=== PATIENT | male | born 1965 | race Caucasian/White ===

== ENCOUNTER → 2019-09-08 12:09 | Outpatient (CLI) | payer SELFPAY ==
[~2019-09-08 12:09] MED LIST: BAYER CHEWABLE81 MG PO; EDARBI40 MG PO; HCTZ25 MG PO; LIPITOR40 MG PO; NORVASC5 MG PO; PLAVIX75 MG PO
--- NOTE | 2019-09-15 17:02 | ST ---
PATIENT:HENRY ALLEN MEDICAL RECORD: [id number] SEX: M LOCATION:[facility] ORDER #: ADMISSION DATE: 09/08/19 AGE OF PATIENT: 53 REFERRING PHYSICIAN: INTERPRETING PHYSICIAN: CLIFFORD PETERSEN MD DATE OF SERVICE: 09/08/2019 PROCEDURE: Nuclear stress test. INDICATION: Angina, abnormal ECG, hypertension, and shortness of breath. He was exercised on standard Hilton protocol for 8 minutes achieving 85% maximum target heart rate response with 32 mCi of sestamibi injected at peak stress, 10 mCi used previously for rest images. FINDINGS: Gated SPECT reveals preserved ejection fraction at 63% with good wall motion and thickening and brightening throughout all segments. SPECT imaging: Cardiolite was used as myocardial perfusion agent. There are reversible changes inferiorly and apically. This includes the basal, mid, apical, inferior segments as well as the apex itself. The degree of reversibility is moderate. The amount of myocardium involved is moderate. OVERALL IMPRESSION: This is an intermediate risk abnormal nuclear stress test. Reversible ischemia throughout the inferior and apical segments suggestive of hemodynamically significant coronary artery disease. TRANSINT:[id number] Voice Confirmation ID: [id number] DOCUMENT ID: [id number] CLIFFORD PETERSEN MD at 1702 CC: [id number] DICTATION DATE: 09/08/19 170 SCOURING TRAIN OPERATOR CHIEF: 09/08/19 2324 DEP CLI 09/08/19 [facility] [address] [place] [address]
[2019-09-29 11:24] VITALS: BMI 32.9
== END | disposition home or self-care (01) ==
LOC: D.HCCARDIO 08:30
PROVIDERS: ATTEND Internal Medicine Interventional Cardiology
DX: I20.9 Angina pectoris, unspecified (principal)

== ENCOUNTER → 2019-09-26 12:27 | Outpatient (CLI) | payer OTHER ==
[2019-09-29 11:24] VITALS: BMI 32.9
== END | disposition home or self-care (01) ==
LOC: D.HCCECHO 12:27
PROVIDERS: ATTEND Internal Medicine Interventional Cardiology
DX: R01.1 Cardiac murmur, unspecified (principal)

== ENCOUNTER 2019-09-29 11:03 | Outpatient (CLI) | payer OTHER ==
[~2019-09-29] VITALS: Ht 177.8 cm; Wt 104.1 kg
--- NOTE | ~2019-09-29 | HEMODYNAMI ---
PATIENT:HENRY ALLEN MEDICAL RECORD: [id number] : 63 LOCATION:D.CAT ADMISSION DATE: 09/29/19 Generatedon:09/29/201913:31 Patient name: HENRY ALLEN Patient #: [id number] SSN: [id number] : 1965 Date of study: 09/29/2019 Page: Of Hemodynamic Procedure Report Patient Data Patient Demographics Procedure consent was obtained First Name: HENRY Gender: Male Last Name: TIFFANY : 1965 Patient #: [id number] Age: 54 year(s) Race: SSN: [id number] Ethnicity: or Additional ID: [id number] Contact details [address]: [address] [place] [address] State: [place] City: [place] Zip code: [address] Admission Admission Data Admission Date: 09/29/2019 Admission Time: 11:03 Arrival Date: 09/29/2019 Arrival Time: 13:00 Admit Source: Other Insurance Payor: Private health insurance [facility] #: [id number] Height (in.): 70.08 BSA: 2.21 (m2) Height (cm.): 178 BMI: 32.82 (kg/m2) Weight (lbs.): 229.28 Weight (kg.): 104 Lab Results Lab Result Date: 09/29/2019 Lab Result Time: 0:00 Biochemistry Name Units Result Min Max BUN mg/dl 18 --(---*)-- 7 18 Creatinine mg/dl 1.2 --(---*)-- 0.6 1.3 eGFR ml/min 67.45449 *-(----)-- 90 120 NONAFRICAN CBC Name Units Result Min Max Hemoglobin g/dl 13.1 -*(----)-- 13.5 17.5 Procedure Procedure Types Cath Procedure Diagnostic Procedure [facility] w/Coronaries Sedation Charges Moderate Sedation up to 30 minutes PCI Procedure Coronary Stent Coronary Stent Initial Procedure Description Procedure Date Procedure Date: 09/29/2019 Procedure Start Time: 13:06 Procedure End Time: 13:24 Procedure Staff Name Function Alex Khalil RN Nurse Addison Mosley MD Performing Physician Maureen Sargent RT Monitor Sandy Rodriguez RT Scrub Procedure Data Cath Procedure Fluoroscopy Diagnostic fluoroscopy Total fluoroscopy Time: 4 time: 4 min min Diagnostic fluoroscopy Total fluoroscopy dose: dose: 1237 mGy 1237 mGy Contrast Material Contrast Material Type Amount (ml) Isovue 300 87 Entry Location Entry Primary Successful Side Size Upsize Upsize Entry Closure Laurent ccessful Closure Location (Fr) 1 (Fr) 2 (Fr) Remarks Device Remarks Radial Right 6 Fr Mechanical artery Short Compression Estimated blood loss: 5 ml Diagnostic catheters Device Type Used For End Catheter Placement DIAGNOSTIC Elizabeth 110cm 5 Multi-vessel Fr catheter ([id number]) Angiography Procedure Complications No complications Procedure Medications Medication Administration Route Dosage Oxygen etCO2 Nasal cannula 2 l/min Lidocaine 2% added to field 20 Heparin Flush Bag added to field 2 bags (1000units/500ml NS) 0.9% NaCl I.V. 100 ml/hr Radial Cocktail I.A. 1 syringe (Verapamil 2mg/Nitro 400mcg/Heparin 1500units) Versed I.V. 2 mg Fentanyl I.V. 100 mcg Versed I.V. 2 mg Fentanyl I.V. 100 mcg Versed I.V. 2 mg Heparin Bolus I.V. 4000 units Integrilin (Bolus I.V. 9.5 ml 2mg/ml) Plavix P.O. 600 mg Hemodynamics Rest BSA: 2.21 (m2) HGB: 13.1 (g/dl) O2 Consumption: Estimated: 265.56 (ml/min) O2 Co nsumption indexed: Estimated:120.16 (ml/min/m) Heart Rate: 74 (bpm) Pressure Samples Time Site Value (mmHg) Purpose Heart Use Rate(bpm) 13:10 LV 117/27,-6 Snapshot 110 Gradients Valve Time Site Site Mean SEP/DFP Peak To Heart Use 1 2 (mmHg) (sec/min) Peak Rate (mmHg) (bpm) Aortic 13:10 LV AO 88 Snapshots Pre Cath Intra NCS Post Cath Vital Signs Time Heart Resp SPO2 etCO2 NIBP (mmHg) Rhythm Pain Sedation Rate (ipm) (%) (mmHg) Status Level (bpm) 12:45:35 69 19 97 28.2 161/84(143) NSR 0 (11) 10(A) , No pain 12:49:46 77 15 98 34.1 148/102(118) NSR 0 (11) 10(A) , No pain 12:54:01 76 13 96 36.4 151/79(114) NSR 0 (11) 10(A) , No pain 12:58:09 69 14 94 0 135/85(102) NSR 0 (11) 10(A) , No pain 13:02:19 75 16 96 0 123/85(102) NSR 0 (11) 9(A) , No pain 13:07:12 83 13 97 35.6 145/81(124) NSR 0 (11) 9(A) , No pain 13:11:24 84 19 94 13.3 119/72(87) NSR 0 (11) 9(A) , No pain 13:16:19 84 15 93 21.5 119/77(92) NSR 0 (11) 9(A) , No pain 13:20:27 81 15 94 36.4 130/73(108) NSR 0 (11) 10(A) , No pain 13:24:32 83 13 97 35.6 145/90(116) NSR 0 (11) 10(A) , No pain Medications Time Medication Route Dose Verified Delivered Reason Not es Effectiveness by by 12:43:01 Oxygen etCO2 2 l/min Addison Johnson used for Nasal St Reg Khalil RN procedure cannula 12:43:08 Lidocaine 2% added 20ml Addison Jaime for local to vial [facility] anesthetic field MD PERKINS 12:43:14 Heparin Flush added 2 bags Addison Jaime used for Bag to [facility] procedure (1000units/500ml field MD PERKINS NS) 12:43:22 0.9% NaCl I.V. 100 Addison Johnson Per physician ml/hr St Reg Khalil RN, MD 12:43:34 Radial Cocktail I.A. 1 Addison Jaime for (Verapamil syringe [facility] vasodilation 2mg/Nitro MD PERKINS 400mcg/Heparin 1500units) 12:58:24 Versed I.V. 2 mg Addison Johnson for sedation St Reg Khalil RN, MD 12:58:29 Fentanyl I.V. 100 mcg Addison Johnson for sedation St Reg Khalil RN, MD 13:03:11 Versed I.V. 2 mg Addison Johnson for sedation St Reg Khalil RN, MD 13:04:14 Fentanyl I.V. 100 mcg Addison Johnson for sedation St Reg Khalil RN, MD 13:08:54 Versed I.V. 2 mg Addison Johnson for sedation St Reg Khalil RN, MD 13:16:27 Heparin Bolus I.V. 4000 Addison Johnson for mable ified units St Reg Khalil RN anticoagulation with dr MD soria 13:17:58 Integrilin I.V. 9.5 ml Addison iglesias was sarah (Bolus 2mg/ml) St Reg Khalil RN antiplatelet 0.5 ml MD therapy of vial 13:25:48 Plavix P.O. 600 [address] Johnson for St Reg Khalil RN antiplatelet therapy Procedure Log Time Note 12:23:57 Informed consent obtained and on chart 12:33:18 Admit Source: Other 12:33:24 Arrival Date: 09/29/2019 1:00:00 PM 12:33:46 Insurance Payor : Private health insurance 12:33:52 Patient Weight : 229.28 lbs 12:33:59 Patient Height : 70.08 inches 12:34:50 Lab Result : Hemoglobin 13.1 g/dl 12:34:50 Lab Result : eGFR NONAFRICAN 67.17390 ml/min 12:34:50 Lab Result : BUN 18 mg/dl 12:34:50 Lab Result : Creatinine 1.2 mg/dl 12:34:56 Procedure Status Elective Heart Cath (OP). 12:34:58 Alex Khalil RN sent for patient. Start room use. 12:34:59 Time tracking: Regular hours (M-F 7:00 - 5:00) 12:35:03 Plan of Care:Hemodynamics will remain stable., Cardiac rhythm will remain stable., Comfort level will be maintained., Respiratory function will remain adequate., Patient/ family verbilizes understanding of procedure., Procedure tolerated without complication., Recovers from procedure without complications.. 12:35:21 Diagnostic Cath Status : Elective 12:43:01 Oxygen 2 l/min etCO2 Nasal cannula was administered by Alex Khalil RN; used for procedure; Verbal order read back and verified. 12:43:08 Lidocaine 2% 20ml vial added to field was administered by Addison Mosley MD; for local anesthetic; Verbal order read back and verified. 12:43:14 Heparin Flush Bag (1000units/500ml NS) 2 bags added to field was administered by Addison Mosley MD; used for procedure; Verbal order read back and verified. 12:43:22 0.9% NaCl 100 ml/hr I.V. was administered by Alex Khalil RN; Per physician; Verbal order read back and verified. 12:43:34 Radial Cocktail (Verapamil 2mg/Nitro 400mcg/Heparin 1500units) 1 syringe I.A. was administered by Addison Mosley MD; for vasodilation; Verbal order read back and verified. 12:43:36 Vital chart was started 12:46:52 Patient received from Pre/Post Procedure Room to CCL 2 Alert and oriented. Tansferred to table in Supine position. 12:46:53 Warm blankets applied, and grabiel hugger turned on for patient comfort. 12:46:53 Correct patient and procedure confirmed by team. 12:46:54 Baseline sample Acquired. 12:46:54 ECG and BP/O2 sat monitors applied to patient. 12:46:58 Rhythm: sinus rhythm 12:47:00 Full Disclosure recording started 12:47:04 H&P Date Dictated: 09/29/2019 Within 30 days and on chart., H&P Addendum completed by physician on day of procedure. (MUST COMPLETE FOR ALL OUTPATIENTS). 12:47:06 Pre-procedure instructions explained to patient. 12:47:06 Pre-op teaching completed and patient verbalized understanding. 12:47:08 Family in patients room. 12:47:09 Patient NPO since Midnight. 12:47:11 Is the patient allergic to Iodine/contrast media? No. 12:47:12 Was the patient premedicated? Yes 12:47:13 Is patient on blood thinner?No 12:47:14 Patient diabetic? No. 12:47:17 Previous problem with sedation/anesthesia? No ? 12:47:18 Snore? Yes 12:47:19 Sleep apnea? No 12:47:20 Deviated septum? No 12:47:21 Opens mouth fully? Yes 12:47:21 Sticks out tongue? Yes 12:47:23 Airway obstruction? No ? 12:47:26 Dentures? No ? 12:47:29 Pre procedure: right dorsailis pedis pulse 2+ Normal; easily identifiable; not easily obliterated 12:47:31 Pre procedure: left dorsailis pedis pulse 2+ Normal; easily identifiable; not easily obliterated 12:47:33 Patient pain scale 0/10 ?. 12:47:38 IV patent on arrival in left forearm with 0.9% NaCl at [facility]. 12:47:41 Lab results completed and on chart. 12:47:56 Stress Test: yes; abnormal inferior 12:48:03 Risk of Mortality: <0.1 12:48:08 Risk of blood transfusion: 0.1 12:48:13 Risk of ASHISH: 0.7 12:48:16 Right Radial & Right Groin area was prepped with chlora-prep and draped in sterile fashion 12:48:17 Alarms reviewed by R. N. 12:48:17 Sharps counted by scrub and verified by R.N. 12:57:42 Physician arrived 12:57:42 --------ALL STOP TIME OUT------ 12:57:43 Final Timeout: patient, procedure, and site verified with staff and physician. All members of the team are in agreement. 12:57:46 Right Radial & Right Groin site verified by team. 12:57:54 Fire Safety Assessment: A--An alcohol-based skin anteseptic being used preoperatively., C--Open oxygen or nitrous oxide is being used., D--An ESU, laser, or fiber-optic light is being used. 12:57:58 Physical assessment completed. ASA score P 2 - A patient with mild systemic disease as per Alex Khalil RN. 12:58:04 2) 60-89 Mildly reduced kidney function, and other findings (as for stage 1) point to kidney disease. 12:58:12 Maximum allowable contrast dose (3.7 X eGFR X 0.75)185 ml. 12:58:17 Sedation plan: IV Moderate Sedation Medication:Versed, Fentanyl 12:58:21 Use device set Radial Dx or PCI 12:58:22 ACIST Syringe (04911) opened to sterile field. 12:58:22 Medline Cath Pack ([id number]) opened to sterile field. 12:58:23 Bag Decanter (2002) opened to sterile field. 12:58:23 ACIST Hand Control (44964) opened to sterile field. 12:58:23 ACIST Manifold (21939) opened to sterile field. 12:58:24 Versed 2 mg I.V. was administered by Alex Khalil RN; for sedation; Verbal order read back and verified. 12:58:24 Tegaderm 4 x 4 (1626W) opened to sterile field. 12:58:25 MBrace Wrist Support (712126047) opened to sterile field. 12:58:27 EMERALD Guide Wire (262-307) opened to sterile field. 12:58:27 SHEATH 6FR RAIN (8432231) opened to sterile field. 12:58:29 Fentanyl 100 mcg I.V. was administered by Alex Khalil RN; for sedation; Verbal order read back and verified. 13:03:11 Versed 2 mg I.V. was administered by Alex Khalil RN; for sedation; Verbal order read back and verified. 13:04:14 Fentanyl 100 mcg I.V. was administered by Alex Khalil RN; for sedation; Verbal order read back and verified. 13:06:49 Procedure started. 13:06:58 Local anesthetic to right radial artery with Lidocaine 2% by Alex Khalil RN.INITIAL ACCESS ONLY 13:07:28 A 6 Fr Short sheath was inserted into the Right Radial artery 13:08:23 A DIAGNOSTIC Elizabeth 110cm 5 Fr catheter (577592) was advanced over the wire and used for Multi-vessel Angiography. 13:08:36 Zero performed for pressure channel P1 13:08:54 Versed 2 mg I.V. was administered by Alex Khalil RN; for sedation; Verbal order read back and verified. 13:10:06 LV hemodynamics recorded. 13:10:07 LV gram done using HOLLOWAY 13:10:10 Injector settings: Ml/sec: 5, Volume: 15, 13:10:17 EF : 55 % 13:11:02 LCA angiography performed. 13:11:05 Injector settings: Ml/sec: 3, Volume: 6, 13:13:03 RCA angiography performed. 13:13:04 ACCDominant side:Right 13:13:06 Injector settings: Ml/sec: 3, Volume: 6, 13:13:22 Catheter removed. 13:13:23 Proceeding to intervention. 13:13:42 GUIDE 6FR XBLAD 3.5 catheter ([id number]) opened to sterile field. 13:14:45 asahi Minomo wire opened to sterile field 13:15:11 INFLATOR Merit BasixCompak (PL5486) opened to sterile field. 13:15:22 6 Fr xblad 3.5 guide catheter was inserted over the wire 13:15:27 minomo wire advanced. 13:16:27 Heparin Bolus 4000 units I.V. was administered by Alex Khalil RN; for anticoagulation; verified with dr soria Verbal order read back and verified. 13:17:13 ACC Pre-intervention PRIYANKA Flow is 3. 13:17:19 Pre PCI Site: [place] dCirc has 90% stenosis. 13:17:58 Integrilin (Bolus 2mg/ml) 9.5 ml I.V. was administered by Alex Khalil RN; for antiplatelet therapy; wasted 0.5 ml of vial Verbal order read back and verified. 13:19:40 Wire advanced across lesion. 13:22:14 Place stent Inflation Number: 1 A COBRA RX 2.5 X 18 Stent was prepped and advanced across the Dist CX 90. The stent was deployed at 14 [place] for 0:10 (min:sec) 0. 13:22:48 ZEPHYR REGULAR TR BAND (849271) opened to sterile field. 13:23:01 Stent catheter was removed intact over wire. 13:23:02 Wire removed. 13:23:03 Guide catheter removed. 13:23:04 ACT drawn and resulted at 394 seconds. (normal therapeutic range 180-240 seconds). 13:23:12 Sheath removed intact; hemostasis achieved with Mechanical Compression to the Right Radial artery. 13:23:13 Procedure ended.(Physican Out) 13:23:23 Fluoroscopy time 04.00 minutes. 13:23:27 Fluoroscopy dose: 1237 mGy 13:23:27 Flurop Dose total: 1237 13:23:32 Dose Area Product 93969 mGy/cm. 13:23:36 Contrast amount:Isovue 300 87ml. 13:23:38 Maximum allowable dose exceeded? No. 13:23:39 Sharps counted by scrub and verified by R.N. 13:23:41 Alexander band inflated with 10cc of air. 13:23:43 Insertion/operative site no bleeding no hematoma. 13:23:49 Post right radial artery:stable 13:23:52 Post Procedure Pulses reassessed and unchanged 13:23:55 Post procedure rhythm: unchanged. 13:23:57 Estimated blood loss: 5 ml 13:23:59 Post procedure instruction explained to patient.Patient verbalizes understanding. 13:23:59 Patient needs reinforcement of post procedure teaching. 13:24:09 Procedure type changed to Cath procedure, Diagnostic procedure, LHC, [facility] w/Coronaries, Sedation Charges, Moderate Sedation up to 30 minutes, PCI procedure, Coronary Stent, Coronary Stent Initial 13:24:10 Procedure and supply charges have been captured, reviewed, submitted and are correct. 13:24:15 Procedure Complication : No complications 13:24:18 Vital chart was stopped 13:24:26 [facility] Findings: MVD- PCI performed (see procedure note) 13:24:28 Operative report dictated upon procedure completion. 13:24:28 See physician's report for complete and final results. 13:24:30 Report given to Pre/Post Procedure Room. 13:24:32 Patient transfered to Pre/Post Procedure Room with Stretcher. 13:24:34 Procedure ended. 13:24:34 Full Disclosure recording stopped 13:24:54 ACC-PCI Only Patient was given prescriptions, or instructed by Addison Mosley MD to start/continue the following medications upon discharge: Plavix 13:24:55 End room use (Document Last) 13:25:48 Plavix 600 mg P.O. was administered by Alex Khalil RN; for antiplatelet therapy; Verbal order read back and verified. Intervention Summary Intervention Notes Time ActionType Lesion and Equipment Action# Pressure Duration Attributes Used 13:22:14 Place stent Dist CX COBRA RX 1 14 00:10 2.5 X 18 Stent Device Usage Item Name Manufacture Quantity Catalog Hospital Part Current Minimal Lot# / Number Charge Number Stock Stock Serial# Code ACIST Syringe Acist 1 76127 476555 012838 998370 20 (65799) Medical Systems Inc Medline Cath Medline 1 [id number] 831264 34865 387389 5 Pack ([id number]) Bag Decanter Microtek 1 235806 20955 124240 5 () Medical Inc. ACIST Hand Acist 1 36659 703191 812972 457338 5 Control Medical (16868) Systems Inc ACIST Manifold Acist 1 01757 413926 505242 230698 5 (83465) Medical Systems Inc Tegaderm 4 x 4 3M 1 1626W 328472 417045 288401 5 (1626W) MBrace Wrist Advanced 1 140-0250-00 867386 15817 155167 5 Support Vascular ([id number]) Dynamics EMERALD Guide Cardinal 1 502-455 044832 664034 438686 5 Wire (502455) Health SHEATH 6FR Cardinal 1 1347094 268948 7456031 063226 5 RAIN (8204076) Health DIAGNOSTIC Terumo 1 40-5013 404222 235868 358762 5 Elizabeth 110cm 5 Fr catheter (563523) GUIDE 6FR Cardinal 1 20475871 725921 994214 899327 10 XBLAD 3.5 Health catheter (19661291) INFLATOR Merit Merit 1 [id number] 105259 654839 658446 15 [facility] Medical ([id number]) COBRA RX 2.5 X Celonova 1 195-67-25829 803027 [id number] 1 [id number] 18 stent Biosciences ([id number]) ZEPHYR REGULAR Cardinal 1 542687 730845 2542925 749973 5 TR BAND Zilta (400927) Signature Audit [place] Stage Time Signature Unsigned Intra-Procedure 09/29/2019 Maureen Sargnet 1:31:15 PM RT(R) Intra-Procedure 09/29/2019 Alex Khalil RN 1:31:37 PM Intra-Procedure 09/29/2019 Addison Jean 1:31:57 PM Reg PERKINS Signatures Nurse : Alex Khalil RN Signature : Date : Time : Performing Physician : Signature : Addison Mosley MD Date : Time : Monitor : Maureen Sargent RT Signature : Date : Time : [address] [place] [address]
[2019-09-29] MEDS ORDERED: NORVASC5 MG PO (11:15)
[2019-09-29] MEDS ORDERED: LIPITOR40 MG PO (11:16)
[2019-09-29] MEDS ORDERED: HCTZ25 MG PO (11:16)
[2019-09-29] MEDS ORDERED: EDARBI40 MG PO (11:17)
[2019-09-29 11:24] VITALS: BP 164/86; Ht 177.8 cm; Wt 104.1 kg
[2019-09-29 11:36] LABS: BASOPHILS 0.2 % (0-2); EOSINOPHILS 3.4 % (0-7); HEMATOCRIT 38.6 % (42.0-54.0); HEMOGLOBIN 13.1 g/dL (13.5-17.5); IMMATURE GRANULOCYTES 0.2 % (0-5); LYMPHOCYTES 18.4 % (15-50); MCH 27.3 pg (26.0-34.0); MCHC 33.9 g/dL (31.0-37.0); MCV 80.4 fL (80.0-100.0); MEAN PLATELET VOLUME 8.4 fL (7.4-10.4); MONOCYTES 6.9 % (2-11); NEUTROPHILS 70.9 % (40-80); PLATELET COUNT 365 10x3/uL (130-400); RDW 21.1 % (11.5-14.5); WBC 10.6 10x3/uL (4.8-10.8)
[2019-09-29 11:50] LABS: ANION GAP 11.6 mmol/L (8-16); CALCIUM 9.7 mg/dL (8.5-10.1); CARBON DIOXIDE 28.1 mmol/L (21.0-32.0); CHOL - HDL RATIO 2.3 ratio (2.3-4.9); CREATININE - SERUM 1.2 mg/dL (0.6-1.3); LDL-HDL RATIO 0.9 ratio (1.5-3.5); POTASSIUM - SERUM 3.7 mmol/L (3.5-5.1)
--- NOTE | 2019-09-29 13:30 | NUR ---
PT RECEIVED VIA STRETCHER FROM MOVE COORDINATOR FOR RECOVERY. PT AWAKE AND ALERT, DENIES PAIN OR DISCOMFORT. IV PATENT INFUSING VIA ORDERS TO L ARM. PT PLACED ON CARDIAC MONITORS AND O2 ON VIA NC AT 2L. HR NSR RATE 70, BP 124/72, RR 16, SAT 91. ZYPHER BAND AND IMMOBILIZER TO R WRIST, DRESSING CDI NO BLEEDING OR S/S HEMATOMA NOTED. ARM PINK AND WARM, CAP REFILL BRISK. DR SUAREZ AT BS. CALL LIGHT IN REACH, AT BS.
[2019-09-29] MEDS ORDERED: BAYER CHEWABLE81 MG PO (13:44)
[2019-09-29] MEDS ORDERED: PLAVIX75 MG PO (13:44)
--- NOTE | 2019-09-29 14:00 | NUR ---
PT RESTING COMFORABLY VISITING W . HR 71, BP 157/94, RR 20 SAT 97. Z BAND AND IMMOBILIZER TO R WRIST, NO BLEEDING OR SWELLING NOTED TO SITE. CAP REFILL BRISK. PT DENIES PAIN OR NEEDS AT THIS TIME. TOLERATING PO FLUIDS. REFUSES SANDWICH AT THIS TIME. CALL LIGHT IN REACH
--- NOTE | 2019-09-29 14:45 | NUR ---
SANDWICH TRAY SERVED.
--- NOTE | 2019-09-29 14:57 | NUR ---
PT RESTING W/O COMPLAINTS. Z BAND AND IMMOBILIZER IN PLACE NO BLEEDING OR S/S HEMATOMA NOTED. CAP REFILL BRISK. VSS. PT VOIDED 350CC CLEAR YELLOW URINE IN URINAL. CALL LIGHT IN REACH
--- NOTE | 2019-09-29 15:20 | NUR ---
4CC AIR REMOVED FROM Z BAND, NO BLEEDING OR S/S HEMATOMA NOTED. ARM PINK AND WARM, CAP REFILL BRISK. HR 68, BP 139/87, RR 19, SAT 97. CALL LIGHT IN REACH
--- NOTE | 2019-09-29 15:45 | NUR ---
4 ADD'L CC AIR REMOVED FROM Z BAND, NO BLEEDING OR SWELLING NOTED. VSS. CAP REFILL BRISK. PT DENIES PAIN OR NEEDS AT THIS TIME. CALL LIGHT IN REACH, AT BEDSIDE
--- NOTE | 2019-09-29 16:11 | NUR ---
DISCHARGE INSTRUCTIONS REVIEWED W PT AND , BOTH VERBALIZED UNDERSTANDING. INSTRUCTIONS ON IMPORTANCE OF GETTING PLAVIX FILLED AND BEGIN TO TAKE THAT AND ASPRIN TOMORROW. REMAINING AIR REMOVED FROM Z BAND, NO BLEEDING OR S/S HEMATOMA NOTED. IV REMOVED W CATH INTACT, MONITORS REMOVED AND PT UP TO DRESS FOR DISCHARGE.
--- NOTE | 2019-09-29 16:23 | NUR ---
1615 Z BAND REMOVED, 2X2 AND TEGADERM DRESSING APPLIED. IMMOBILIZER REPOSITIONED. 1620 PT DISCHARGED TO WAITING IN PRIVATE VEHICLE. PT HAD ALL BELONGINGS AND DISCHARGE FOLDER.
--- NOTE | 2019-09-30 13:13 | OP ---
PATIENT NAME: HENRY ALLEN MEDICAL RECORD: [id number] :63 LOCATION:D.CAT ADMISSION DATE: SURGEON: PIETER SUAREZ MD DATE OF OPERATION: 09/29/2019 PROCEDURE: Left heart catheterization, selective coronary angiography, right radial approach. CATHETERS: Providence catheter, radial sheath. The procedure was well tolerated. Proceeded immediately to PTCA stenting of the circumflex. FINDINGS: Left ventriculography in 30-degree HOLLOWAY view: Normal wall motion and normal systolic function. CORONARY ANATOMY: LEFT MAIN: Left main is free of disease. LAD: LAD has luminal irregularity, no flow obstructive disease. CIRCUMFLEX: Circumflex has a diffuse 90% stenosis at its distal third. RIGHT CORONARY ARTERY: Has about 80% stenosis in proximal third. IMPRESSION AND PLAN: Intervention of circumflex, right at later date. DESCRIPTION OF PROCEDURE: Using indwelling sheath, EBU 3.5 guide catheter provided good guide catheter support, followed by 300 cm Whisper wire placed across the tightly occluded circumflex across distal portion of vessel. Stent deployed was a 2.5 x 18 mm Cobra stent up to 14 atmospheres for 45 seconds. Final angiography shows excellent resolution of diffuse 90% stenosis, no significant residual. PRIYANKA flow was 3 throughout the procedure. Integrilin was used during the case. Plavix was loaded in the lab. Sheath was closed with ExoSeal device. TRANSINT:[id number] Voice Confirmation ID: [id number] DOCUMENT ID: [id number] PIETER SUAREZ MD at 1313 CC: [id number] DICTATION DATE: 09/29/19 1332 AIRPLANE FUELER: 09/29/19 1558 DEP CLI 09/29/[address] [address]
== END 2019-09-29 16:20 | disposition home or self-care (01) ==
LOC: D.CATH 11:03
PROVIDERS: ATTEND Internal Medicine Interventional Cardiology
DX: I20.9 Angina pectoris, unspecified (principal); E78.5 Hyperlipidemia, unspecified; I10 Essential (primary) hypertension

== ENCOUNTER 2019-10-02 11:13 | Outpatient (CLI) | payer OTHER ==
[~2019-10-02] VITALS: Ht 175.3 cm; Wt 104.1 kg
--- NOTE | ~2019-10-02 | HEMODYNAMI ---
PATIENT:HENRY ALLEN MEDICAL RECORD: [id number] : 63 LOCATION:D.CAT ADMISSION DATE: 10/02/19 Generatedon:10/02/201913:49 Patient name: HENRY ALLEN Patient #: [id number] SSN: [id number] : 1965 Date of study: 10/02/2019 Page: Of Hemodynamic Procedure Report Patient Data Patient Demographics Procedure consent was obtained First Name: HENRY Gender: Male Last Name: TIFFANY : 1965 Patient #: [id number] Age: 54 year(s) Race: SSN: [id number] Additional ID: [id number] Contact details Address: [address] [place] [address] State: [place] City: [place] Zip code: [address] Past Medical History Allergies: No known allergies Admission Admission Data Admission Date: 10/02/2019 Admission Time: 11:13 Arrival Date: 10/02/2019 Arrival Time: 0:00 Admit Source: Other Insurance Payor: Private health insurance [facility] #: [id number] Height (in.): 68.9 BSA: 2.19 (m2) Height (cm.): 175 BMI: 33.96 (kg/m2) Weight (lbs.): 229.28 Weight (kg.): 104 Lab Results Lab Result Date: 10/02/2019 Lab Result Time: 0:00 Biochemistry Name Units Result Min Max BUN mg/dl 22 --(----)-* 7 18 Creatinine mg/dl 1.1 --(--*-)-- 0.6 1.3 eGFR ml/min 73.67737 *-(----)-- 90 120 NONAFRICAN CBC Name Units Result Min Max Hematocrit % 38.7 *-(----)-- 42 54 Hemoglobin g/dl 13 -*(----)-- 13.5 17.5 Procedure Procedure Types Cath Procedure Diagnostic Procedure Sedation Charges Moderate Sedation up to 30 minutes PCI Procedure Coronary Stent Coronary Stent Initial Hemochron ACT Test Procedure Description Procedure Date Procedure Date: 10/02/2019 Procedure Start Time: 13:12 Procedure End Time: 13:47 Procedure Staff Name Function Addison Mosley MD Performing Physician Callie Rg RT Monitor Oralia Madrigal RT Monitor Talat Sage RN Nurse Monie Diaz RT Scrub Indication Angina Procedure Data Cath Procedure Fluoroscopy Diagnostic fluoroscopy Total fluoroscopy Time: 7.8 time: 7.8 min min Diagnostic fluoroscopy Total fluoroscopy dose: 952 dose: 952 mGy mGy Contrast Material Contrast Material Type Amount (ml) Isovue 300 88 Entry Location Entry Primary Successful Side Size Upsize Upsize Entry Closure Succes sful Closure Location (Fr) 1 (Fr) 2 (Fr) Remarks Device Remarks Femoral Right 6 Fr Exoseal artery Short Estimated blood loss: 10 ml Procedure Complications No complications Procedure Medications Medication Administration Route Dosage 0.9% NaCl I.V. 100 ml/hr Oxygen etCO2 Nasal cannula 2 l/min Heparin Flush Bag added to field 2 bags (1000units/500ml NS) Lidocaine 2% added to field 20 Versed I.V. 2 mg Fentanyl I.V. 100 mcg Versed I.V. 2 mg Heparin Bolus I.V. 5000 units Vasotec I.V. 2.5 mg Nitroglycerin IC/IA I.A. 200 mcg Hemodynamics Rest BSA: 2.19 (m2) O2 Consumption: Estimated: 297.84 (ml/min) O2 Consumption indexed : Estimated:136 (ml/min/m) Pre Cath Intra NCS Post Cath Vital Signs Time Heart Resp SPO2 etCO2 NIBP (mmHg) Rhythm Pain Sedation Rate (ipm) (%) (mmHg) Status Level (bpm) 12:56:38 63 13 99 26.4 161/96(128) NSR 0 (11) 10(A) , No pain 13:00:54 78 18 99 22.6 156/101(128) NSR 0 (11) 10(A) , No pain 13:05:08 70 11 96 33.2 132/96(106) NSR 0 (11) 10(A) , No pain 13:09:14 73 11 94 34.7 139/89(113) NSR 0 (11) 10(A) , No pain 13:13:22 85 19 98 31.7 154/109(120) NSR 0 (11) 10(A) , No pain 13:17:32 84 11 98 35.5 130/97(114) NSR 0 (11) 10(A) , No pain 13:21:37 86 11 97 31.7 133/89(110) NSR 0 (11) 10(A) , No pain 13:26:46 86 16 97 33.2 171/113(142) NSR 0 (11) 9(A) , No pain 13:31:07 80 17 97 30.9 186/118(166) NSR 0 (11) 9(A) , No pain 13:35:31 82 19 98 30.9 195/110(158) NSR 0 (11) 10(A) , No pain 13:39:51 89 29 98 28.6 181/102(145) NSR 0 (11) 10(A) , No pain 13:44:07 84 13 99 26.4 156/107(121) NSR 0 (11) 10(A) , No pain Medications Time Medication Route Dose Verified Delivered Reason Notes E ffectiveness by by 13:02:46 0.9% NaCl I.V. 100 Talat Talat Per ml/hr Chu Sage physician RN RN 13:02:56 Oxygen etCO2 2 Talat Talat for low 02 Nasal l/min Chu Sage sats cannula RN RN 13:03:07 Heparin Flush added 2 Talat Talat used for Bag to bags Chu Sage procedure (1000units/500ml field RN RN NS) 13:03:17 Lidocaine 2% added 20ml Talat Talat for local to vial Chu Sage anesthetic field RN RN 13:12:41 Versed I.V. 2 mg Talat Talat for sedation Chu Sage RN RN 13:12:50 Fentanyl I.V. 100 Talat Talat for sedation mcg Chu Sage RN RN 13:13:41 Versed I.V. 2 mg Talat Talat for sedation Chu Sage RN RN 13:15:17 Heparin Bolus I.V. 5000 Talat Talat for units Chu Sage antiplatelet RN RN therapy 13:34:44 Vasotec I.V. 2.5 Talat Talat for mg Chu Sage hypertension RN RN 13:40:56 Nitroglycerin I.A. 200 Talat Addison for IC/IA mcg Lorigan Melany vasodilation RN MD Procedure Log Time Note 12::25 Informed consent obtained and on chart 12:33:17 Indication : Angina 12:36:42 Arrival Date: 10/02/2019 12:00:00 AM 12:37:32 Admit Source: Other 12:37:35 Insurance Payor : Private health insurance 12:39:39 Patient Height : 68.9 inches 12:39:45 Patient Weight : 229.28 lbs 12:41:25 Lab Result : Creatinine 1.1 mg/dl 12::25 Lab Result : BUN 22 mg/dl 12::25 Lab Result : eGFR NONAFRICAN 73.25642 ml/min 12:41:25 Lab Result : Hematocrit 38.7 % 12::25 Lab Result : Hemoglobin 13 g/dl 12:41:48 Procedure Status PCI. 12:41:51 Talat Sage RN sent for patient. Start room use. 12:42:04 Time tracking: Regular hours (M-F 7:00 - 5:00) 12:42:12 Plan of Care:Hemodynamics will remain stable., Cardiac rhythm will remain stable., Comfort level will be maintained., Respiratory function will remain adequate., Patient/ family verbilizes understanding of procedure., Procedure tolerated without complication., Recovers from procedure without complications.. 12:43:06 ACC Patient presents with Stable Angina CCS Anginal Class 2--Slight limitation of ordinary activity. 12:44:25 ACCPatient has been prescribed/administered the following anti-anginal medication within the last 2 weeks: None 12:47:24 Patient received from Pre/Post Procedure Room to [facility] 2 Alert and oriented. Tansferred to table in Supine position. 12:47:27 Warm blankets applied, and grabiel hugger turned on for patient comfort. 12:47:28 Correct patient and procedure confirmed by team. 12:47:29 ECG and BP/O2 sat monitors applied to patient. 12:55:32 Vital chart was started 12:55:36 Rhythm: sinus rhythm 12:55:37 Full Disclosure recording started 12:55:48 H&P Date Dictated: 10/02/2019 New H&P dictated by physician.. 12:55:50 Pre-procedure instructions explained to patient. 12:55:50 Pre-op teaching completed and patient verbalized understanding. 12:55:52 Family in patients room. 12:55:54 Patient NPO since Midnight. 12:55:58 Patient allergic to No known allergies 12:56:00 Is the patient allergic to Iodine/contrast media? No. 12:56:01 Is patient on blood thinner?Yes 12:56:05 ACC The patient was administered the following blood thiners within the last 24 hours: ACCPlavix 12:56:45 Patient diabetic? No. 12:56:48 Previous problem with sedation/anesthesia? No ? 12:56:50 Snore? Yes 12:56:51 Sleep apnea? No 12:56:52 Deviated septum? No 12:56:53 Opens mouth fully? Yes 12:56:54 Sticks out tongue? Yes 12:56:55 Airway obstruction? No ? 12:56:57 Dentures? No ? 12:57:00 Pre procedure: right dorsailis pedis pulse 2+ Normal; easily identifiable; not easily obliterated 12:57:03 Patient pain scale 0/10 ?. 12:57:13 IV patent on arrival in left hand with 0.9% NaCl at [facility]. 12:57:17 Lab results completed and on chart. 12:57:35 Stress Test: no; N/A BRING BACK PCI 12:58:42 Risk of Mortality: .1 12:58:44 Risk of blood transfusion: .5 12:58:47 Risk of ASHISH: 2 12:58:52 Right groin area was prepped with chlora-prep and draped in sterile fashion 12:58:53 Alarms reviewed by R. N. 12:58:53 Sharps counted by scrub and verified by R.N. 13:02:43 Use device set CATH PACK 13:02:44 ACIST Syringe (09701) opened to sterile field. 13:02:44 ACIST Hand Control (65503) opened to sterile field. 13:02:45 ACIST Manifold (56255) opened to sterile field. 13:02:45 Medline Cath Pack ([id number]) opened to sterile field. 13:02:45 Bag Decanter (2002) opened to sterile field. 13:02:46 0.9% NaCl 100 ml/hr I.V. was administered by Talat Sage RN; Per physician; Verbal order read back and verified. 13:02:46 EMERALD Guide Wire (427-619) opened to sterile field. 13:02:56 Oxygen 2 l/min etCO2 Nasal cannula was administered by Talat Sage RN; for low 02 sats; Verbal order read back and verified. 13:03:07 Heparin Flush Bag (1000units/500ml NS) 2 bags added to field was administered by Talat Sage RN; used for procedure; Verbal order read back and verified. 13:03:07 SHEATH 6FR Canmer ([id number]) opened to sterile field. 13:03:07 INFLATOR Merit BasixCompak (IZ6655) opened to sterile field. 13:03:07 WHISPER 300cm guide wire ([id number]) opened to sterile field. 13:03:08 GUIDE 6FR HS I catheter (LA6HSI) opened to sterile field. 13:03:17 Lidocaine 2% 20ml vial added to field was administered by Talat Sage RN; for local anesthetic; Verbal order read back and verified. 13:11:05 Physician arrived 13:11:05 --------ALL STOP TIME OUT------ 13:11:06 Final Timeout: patient, procedure, and site verified with staff and physician. All members of the team are in agreement. 13:11:08 Right groin site verified by team. 13:11:19 Fire Safety Assessment: A--An alcohol-based skin anteseptic being used preoperatively., C--Open oxygen or nitrous oxide is being used., D--An ESU, laser, or fiber-optic light is being used. 13:11:25 Physical assessment completed. ASA score P 2 - A patient with mild systemic disease as per Addison Mosley MD. 13:11:31 2) 60-89 Mildly reduced kidney function, and other findings (as for stage 1) point to kidney disease. 13:11:37 Maximum allowable contrast dose (3.7 X eGFR X 0.75)205 ml. 13:11:42 Sedation plan: IV Moderate Sedation Medication:Versed, Fentanyl 13:11:59 Procedure started. 13:12:14 Local anesthetic to right femoral artery with Lidocaine 2% by Addison Mosley MD.INITIAL ACCESS ONLY 13:12:41 Versed 2 mg I.V. was administered by Talat Sage RN; for sedation; Verbal order read back and verified. 13:12:50 Fentanyl 100 mcg I.V. was administered by Talat Sage RN; for sedation; Verbal order read back and verified. 13:13:10 A 6 Fr Short sheath was inserted into the Right Femoral artery 13:13:39 6 Fr HS1 guide catheter was inserted over the wire 13:13:41 Versed 2 mg I.V. was administered by Talat Sage RN; for sedation; Verbal order read back and verified. 13:15:17 Heparin Bolus 5000 units I.V. was administered by Talat Sage RN; for antiplatelet therapy; Verbal order read back and verified. 13:15:24 Pre PCI Site: [place] mRCA has 80% stenosis. 13:15:35 ACC Pre-intervention PRIYANKA Flow is 3. 13:16:56 Catheter removed. damaged. 13:17:00 Guide Catheter removed. pressure damping. 13:17:10 GUIDE 6FR HS I SH catheter ([id number]) opened to sterile field. 13:17:33 6 Fr HS1 SH guide catheter was inserted over the wire 13:17:45 300 WHISPER wire advanced. 13:19:21 Wire advanced across lesion. 13:22:42 Place stent Inflation Number: 1 A ANNMARIE OTW 3.0 x 18 stent ([id number]) was prepped and advanced across the Mid RCA . The stent was deployed at 14 [place] for 0:00 (min:sec) . 13:23:45 Inflation number: 2 The stent balloon was then re-inflated across the Mid RCA to 6 [place] for 0:00 (min:sec) . 13:24:31 Stent catheter was removed intact over wire. 13:29:43 Place stent Inflation Number: 1 A ANNMARIE RX 3.0 x 15 stent ([id number]) was prepped and advanced across the Prox RCA . The stent was deployed at 14 [place] for 0:00 (min:sec) . 13:33:19 Place stent Inflation Number: 2 A ANNMARIE OTW 3.0 x 08 stent ([id number]) was prepped and advanced across the Prox RCA . The stent was deployed at 16 [place] for 0:00 (min:sec) . 13:34:44 Vasotec 2.5 mg I.V. was administered by Talat Sage RN; for hypertension; Verbal order read back and verified. 13:35:47 Stent catheter was removed intact over wire. 13:38:09 Place stent Inflation Number: 3 A ANNMARIE OTW 3.0 x 08 stent ([id number]) was prepped and advanced across the Prox RCA . The stent was deployed at 14 [place] for 0:00 (min:sec) . 13:38:52 Stent catheter was removed intact over wire. 13:38:54 Wire removed. 13:38:55 Guide catheter removed. 13:39:00 ACT drawn and resulted at 241 seconds. (normal therapeutic range 180-240 seconds). 13:40:06 EXOSEAL 6Fr (EX600) opened to sterile field. 13:40:56 Nitroglycerin IC/IA 200 mcg I.A. was administered by Addison Mosley MD; for vasodilation; Verbal order read back and verified. 13:40:57 Sheath removed intact; hemostasis achieved with Exoseal to the Right Femoral artery. 13:41:02 Procedure ended.(Physican Out) 13:41:15 Fluoroscopy time 07.80 minutes. 13:41:25 Fluoroscopy dose: 952 mGy 13:41:25 Flurop Dose total: 952 13:41:34 Dose Area Product 75444 mGy/cm. 13:42:01 Contrast amount:Isovue 300 88ml. 13:42:05 Maximum allowable dose exceeded? No. 13:42:06 Sharps counted by scrub and verified by R.N. 13:42:10 Insertion/operative site no bleeding no hematoma. 13:42:15 Post-op/insertion site Right Femoral artery dressed using a 4 x 4 and Tegaderm. 13:42:20 Post right femoral artery:stable 13:42:23 Post Procedure Pulses reassessed and unchanged 13:42:29 Post-procedure physical assessment completed. ASA score P 2 - A patient with mild systemic disease as per Addison Mosley MD. 13:42:33 Post procedure rhythm: unchanged. 13:42:41 Estimated blood loss: 10 ml 13:42:53 Post procedure instruction explained to patient.Patient verbalizes understanding. 13:42:54 Patient needs reinforcement of post procedure teaching. 13:43:50 Procedure type changed to Cath procedure, Diagnostic procedure, Sedation Charges, Moderate Sedation up to 30 minutes, PCI procedure, Coronary Stent, Coronary Stent Initial, Hemochron ACT Test 13:45:04 Procedure and supply charges have been captured, reviewed, submitted and are correct. 13:46:27 Procedure Complication : No complications 13:46:33 Vital chart was stopped 13:46:[address] [facility] Findings: MVD- PCI performed (see procedure note) 13:46:41 Operative report dictated upon procedure completion. 13:47:13 See physician's report for complete and final results. 13:47:21 Report given to Pre/Post Procedure Room. 13:47:26 Patient transfered to Pre/Post Procedure Room with Stretcher. 13:47:29 Procedure ended. 13:47:29 Full Disclosure recording stopped 13:47:41 ACC-PCI Only Patient was given prescriptions, or instructed by Addison Mosley MD to start/continue the following medications upon discharge: Plavix 13:47:43 End room use (Document Last) Intervention Summary Intervention Notes Time ActionType Lesion and Equipment Used Action# Pressure Duration Attributes 13:22:42 Place stent Mid RCA ANNMARIE OTW 3.0 x 1 14 00:00 18 stent ([id number]) 13:23:45 Reinflate Mid RCA ANNMARIE OTW 3.0 x 2 6 00:00 stent 18 stent balloon ([id number]) 13:29:43 Place stent Prox RCA ANNMARIE RX 3.0 x 1 14 00:00 15 stent ([id number]) 13:33:19 Place stent Prox RCA ANNMARIE OTW 3.0 x 2 16 00:00 08 stent ([id number]) 13:38:09 Place stent Prox RCA ANNMARIE OTW 3.0 x 3 14 00:00 08 stent ([id number]) Device Usage Item Name Manufacture Quantity Catalog [facility] Lot# / Number Charge Number Stock Stock Serial# Code ACIST Syringe Acist 1 32219 353739 322918 139177 20 (63239) Medical Systems Inc ACIST Hand Acist 1 67075 847633 551147 022154 5 Control Medical (80308) Systems Inc ACIST Manifold Acist 1 86125 342680 933179 595018 5 (37421) Medical Systems Inc Medline Cath Medline 1 [id number] 464755 35395 957930 5 Pack ([id number]) Bag Decanter Microtek 1 101128 07888 429073 5 () Medical Inc. EMERALD Guide Cardinal 1 502-455 246357 318615 256201 5 Wire (502-455) Health SHEATH 6FR Terumo 1 TSW748 554027 633646 089195 40 Canmer (NSO837) INFLATOR Merit Merit 1 SF9978 368665 518990 401114 15 [employer] [facility] Medical (HX2484) WHISPER 300cm Singh 1 [id number] 155600 013073 470509 5 guide wire Vascular ([id number]) GUIDE 6FR HS I Medtronic 1 LA6HSI 094480 52708 287180 1 catheter (LA6HSI) GUIDE 6FR HS I Medtronic 1 [id number] 935690 87599 860507 1 SH catheter (SD9DSPWU) ANNMARIE OTW 3.0 x Medtronic 1 [id number] 759299 1562072 315238 5 [id number] 18 stent ([id number]) ANNMARIE RX 3.0 x Medtronic 1 [id number] 792559 0480418 409323 5 [id number] 15 stent ([id number]) ANNMARIE OTW 3.0 x Medtronic 2 [id number] 263923 6620830 456117 5 [id number] 08 stent [id number] ([id number]) EXOSEAL 6Fr Cardinal 1 EX600 885282 012665 893760 10 (EX600) Health Signature Audit [place] Stage Time Signature Unsigned Intra-Procedure 10/02/2019 Oralia 1:48:56 PM Kaitlin HALL(R) (CV) Intra-Procedure 10/02/2019 Talat 1:49:20 PM Chu JOHN Intra-Procedure 10/02/2019 Addison Jean 1:49:50 PM Reg PERKINS Signatures Performing Physician : Signature : Addison Mosley MD Date : Time : Monitor : Callie Rg Signature : RT Date : Time : Monitor : Oralia Signature : Nannemann RT Date : Time : Nurse : Talat Lorigan Signature : RN Date : Time : [address] [place] [address]
[2019-10-02 11:31] VITALS: BP 144/97; Ht 175.3 cm; Wt 104.1 kg
[2019-10-02 11:57] LABS: BASOPHILS 0.5 % (0-2); EOSINOPHILS 5.2 % (0-7); HEMATOCRIT 38.7 % (42.0-54.0); LYMPHOCYTES 30.2 % (15-50); MCH 27.2 pg (26.0-34.0); MCHC 33.6 g/dL (31.0-37.0); MEAN PLATELET VOLUME 8.3 fL (7.4-10.4); NEUTROPHILS 57.1 % (40-80); PLATELET COUNT 358 10x3/uL (130-400); RBC 4.78 10x6/uL (4.20-6.10); RDW 21.1 % (11.5-14.5); WBC 6.4 10x3/uL (4.8-10.8)
[2019-10-02 12:02] LABS: CALCIUM 9.6 mg/dL (8.5-10.1); CARBON DIOXIDE 25.1 mmol/L (21.0-32.0); CREATININE - SERUM 1.1 mg/dL (0.6-1.3); POTASSIUM - SERUM 4.1 mmol/L (3.5-5.1)
--- NOTE | 2019-10-02 13:58 | NUR ---
PT ARRIVED BY STRETCHER. PLACED ON MONITOR. ASSESSMENT COMPLETED. VSS. FAMILY AT BEDSIDE. DR. MORA ROUNDED AND SPOKE WITH PT'S FAMILY.
--- NOTE | 2019-10-02 14:15 | NUR ---
RIGHT GROIN DRESSING C/D/I. NO S/S OF HEMATOMA NOTED. CALL LIGHT WITHIN REACH. AT BEDSIDE. VSS. RIGHT PEDAL PULSE PALPABLE. PT RESTING COMFORTABLY. DENIES NAUSEA/PAIN AT THIS TIME.
--- NOTE | 2019-10-02 14:45 | NUR ---
RIGHT GROIN DRESSING C/D/I. NO S/S OF HEMATOMA NOTED. CALL LIGHT WITHIN REACH. VSS. FAMILY AT BEDSIDE. NO NEEDS AT THIS TIME.
--- NOTE | 2019-10-02 15:15 | NUR ---
RIGHT GROIN DRESSING C/D/I. NO S/S OF HEMATOMA NOTED. CALL LIGHT WITHIN REACH. VSS. FAMILY AT BEDSIDE.
--- NOTE | 2019-10-02 15:45 | NUR ---
PT RESTING COMFORTABLY. RIGHT GROIN DRESSING C/D/I. NO S/S OF HEMATOMA NOTED. RIGHT PEDAL PULSE PALPABLE. VSS. CALL LIGHT WITHIN REACH.
--- NOTE | 2019-10-02 16:30 | NUR ---
RIGHT GROIN DRESSING C/D/I. NO S/S OF HEMATOMA NOTED. PT'S HEAD OF BED INC TO 30 DEGREES. TOLERATED WELL. PT SET UP WITH SANDWICH TRAY AND DRINK. VOIDED 450cc OF CLEAR YELLOW URINE IN URINAL WITHOUT DIFFICULTY. DENIES PAIN/NAUSEA AT THIS TIME.
--- NOTE | 2019-10-02 17:05 | NUR ---
PIV D/C'D WITH CATH TIP INTACT. PT TOLERATED WELL. DISCUSSED DISCHARGE INSTRUCTIONS WITH PT AND PT'S . THEY VOICED UNDERSTANDING. PT INSTRUCTED TO GET UP AND DRESSED. FAMILY AT BEDSIDE TO ASSIST.
--- NOTE | 2019-10-02 17:15 | NUR ---
PT TAKEN OUT TO VEHICLE BY WHEELCHAIR. NO S/S OF DISTRESS NOTED. RIGHT GROIN DRESSING C/D/I. NO S/S OF HEMATOMA NOTED. ALL BELONGINGS AND PAPERWORK IN HAND.
--- NOTE | 2019-10-03 13:04 | OP ---
PATIENT NAME: HENRY ALLEN MEDICAL RECORD: [id number] :63 LOCATION:D.CAT ADMISSION DATE: SURGEON: PIETER SUAREZ MD DATE OF OPERATION: 10/02/2019 PROCEDURE: PTCA stent. DESCRIPTION OF PROCEDURE: After a 6-Norwegian sheath was placed in the right femoral artery. Hockey-stick guiding catheter with side holes provided excellent guide catheter support followed by 300 cm Whisper wire placed across the totally occluded right down this portion of vessel. Stents were placed in the following fashion: A 3.0 x 15 mm, 3.0 x 8 mm, 3.0 x 15 mm were all placed. Angiography then showed a proximal probably guide catheter section and finally a fourth 3.0 x 8 mm Ashok drug-eluting stent was inflated up to 16 atmospheres. Final angiography shows excellent resolution of the original stenosis. Nice tacking of the ostial probably guide catheter stenosis, no significant residual. PRIYANKA flow was 3 throughout the procedure. Sheath was closed with ExoSeal device. Plavix was loaded in the lab. ____. TRANSINT:[id number] Voice Confirmation ID: [id number] DOCUMENT ID: [id number] PIETER SUAREZ MD at 1304 CC: [id number] DICTATION DATE: 10/02/19 1357 MANAGER EXPORT: 10/02/19 1833 DEP CLI 10/02/19 [facility] [address] [place] [address]
== END 2019-10-02 17:15 | disposition home or self-care (01) ==
LOC: D.CATH 11:13
PROVIDERS: Internal Medicine Cardiovascular Disease; ATTEND Internal Medicine Interventional Cardiology
DX: I25.119 Atherosclerotic heart disease of native coronary artery with unspecified angina pectoris (principal); I10 Essential (primary) hypertension; E78.5 Hyperlipidemia, unspecified